=== PATIENT | female | born 1950 | race Caucasian/White ===

== ENCOUNTER 2022-12-17 06:31 | Day surgery (SDC) | payer MEDICARE, BC ==
[2022-12-16 11:08] VITALS: BMI 40.3
[~2022-12-17 06:31] MED LIST: EPINEPHrine 0.3 MG in Ophthalmic Irrigation Solution 500 ML IRR SCH
[2022-12-17] MEDS ORDERED: fentaNYL PF 100 MCG/2 ML SYRINGE ONE (06:40)
[2022-12-17] MEDS ORDERED: Midazolam HCl 2 mg/2 ml Vial ONE (06:40)
[2022-12-17] MEDS ORDERED: Phenylephrine 2.5% Ophth Soln 5 ML BOT ONE (06:52)
[2022-12-17] MEDS ORDERED: Cyclopentolate 1% Opth Drop 2 ML BOT ONE (06:52)
[2022-12-17] MEDS ORDERED: Lidocaine 1% PF 5 ML VIAL ONE (08:07)
[2022-12-17] MEDS ORDERED: Ondansetron PF 4 MG/2 ML Vial ONE (08:07)
[2022-12-17] MEDS ORDERED: Bupivacaine 0.75% 10 ML VIAL ONE (08:07)
[2022-12-17] MEDS ORDERED: Maxitrol 0.1% Opth Oint 3.5 GM TUBE ONE (08:07)
[2022-12-17] MEDS ORDERED: Famotidine/PF 20 mg/2ml Vial ONE (08:07)
[2022-12-17] MEDS ORDERED: Triamcinolone 40 MG/ML VIAL ONE (08:07)
[2022-12-17] MEDS ORDERED: PROPOFOL 200 MG/20 ML VIAL ONE (08:07)
[2022-12-17] MEDS ORDERED: Lidocaine 4% PF 5 ML AMP ONE (08:07)
[2022-12-17] MEDS ORDERED: Indocyanine Green 25 MG/10 ML VIAL ONE (08:07)
== END 2022-12-17 10:30 | disposition home or self-care (01) ==
LOC: SDC 06:31
PROVIDERS: ATTEND Ophthalmology Retina Specialist
PROC: 08T43ZZ Resection of Right Vitreous, Percutaneous Approach (ICD-10-PCS; principal; 2022-12-17)
DX: H35.371 Puckering of macula, right eye (principal); I10 Essential (primary) hypertension; E78.5 Hyperlipidemia, unspecified; J45.909 Unspecified asthma, uncomplicated; E11.9 Type 2 diabetes mellitus without complications; E03.9 Hypothyroidism, unspecified; M19.90 Unspecified osteoarthritis, unspecified site; M81.0 Age-related osteoporosis without current pathological fracture; Z79.01 Long term (current) use of anticoagulants; Z79.4 Long term (current) use of insulin; Z79.85 Long-term (current) use of injectable non-insulin antidiabetic drugs; Z79.890 Hormone replacement therapy; Z79.899 Other long term (current) drug therapy; Z88.0 Allergy status to penicillin; Z95.0 Presence of cardiac pacemaker; Z98.41 Cataract extraction status, right eye; Z98.42 Cataract extraction status, left eye; Z96.1 Presence of intraocular lens
CPT/HCPCS: 36416; J0171; J2250; J2405; J2704; J3301; J3490; S0028